=== PATIENT | female | born 1980 | race Caucasian/White ===

== ENCOUNTER 2020-10-30 20:24 | Emergency (ER) | payer OTHER ==
[~2020-10-30] VITALS: Ht 167.6 cm; Wt 83.9 kg
[2020-10-30] MEDS ORDERED: CYCL10 (21:48)
[2020-10-30] MEDS ORDERED: BUPROPION HCL200 M1 PO (21:51)
[2020-10-30] MEDS ORDERED: CLON.1 PO (21:51)
[2020-10-30] MEDS ORDERED: HYDHCL25 PO (21:52)
[2020-10-30 23:24] LABS: BASOPHILS ABSOLUTE AUTO 0.11 K/mm3 (0.00-0.23); BASOPHILS PERCENT AUTO 1 % (0-2); EOSINOPHILS ABSOLUTE AUTO 0.69 K/mm3 (0.00-0.68); EOSINOPHILS PERCENT AUTO 7 % (0-6); Hemoglobin 12.9 g/dL (11.5-16.0); IMMATURE GRAN ABSOLUTE AUTO 0.02 K/mm3 (0.00-0.10); IMMATURE GRAN PERCENT AUTO 0 % (0-1); LYMPHOCYTES ABSOLUTE AUTO 3.14 K/mm3 (0.84-5.20); LYMPHOCYTES PERCENT AUTO 30 % (21-46); MONOCYTES ABSOLUTE AUTO 0.79 K/mm3 (0.16-1.47); MONOCYTES PERCENT AUTO 8 % (4-13); Mean Corpuscular HGB 31.2 pg (26.0-34.0); Mean Corpuscular HGB Conc 33.9 g/dL (31.5-36.5); Mean Corpuscular Volume 92 fL (80-100); Mean Platelet Volume 10.4 fL (9.1-12.4); NEUTROPHILS ABSOLUTE AUTO 5.84 K/mm3 (1.96-9.15); NEUTROPHILS PERCENT AUTO 55 % (41-73); Platelet Count 238 K/mm3 (150-400); RDW Coefficient Variation 12.1 % (11.7-14.2); RDW Standard Deviation 41.2 fL (35.1-46.3); Red Blood Cell Count 4.13 M/mm3 (3.80-5.20); White Blood Cell Count 10.59 K/mm3 (4.00-11.30)
[2020-10-30 23:42] LABS: Alanine Aminotransfer (ALT/SGP 23 U/L (12-78); Albumin, Blood 3.7 g/dL (3.4-5.0); Alk Phos 49 U/L (50-136); Anion Gap 5 mmol/L (6-16); Aspartate Aminotrans (AST/SGOT 20 U/L (12-37); Bilirubin, Total 0.3 mg/dL (0.1-1.0); Blood Urea Nitrogen 13 mg/dL (8-24); Bun/Creatinine Ratio 19.6 (12.0-20.0); C-REACTIVE PROTEIN, EXT RANGE 0.347 mg/dL (0.000-0.300); CO2, Blood 26 mmol/L (21-32); Calcium, Blood 8.5 mg/dL (8.5-10.1); Chloride, Blood 108 mmol/L (98-108); Creatinine, Blood 0.66 mg/dL (0.40-1.00); Globulin, Blood 3.7 g/dL (2.2-4.0); Glomerular Filtration Rate >60 (60-); Glucose, Blood 93 mg/dL (70-99); Potassium, Blood 4.4 mmol/L (3.5-5.5); Sodium, Blood 139 mmol/L (136-145); Total Protein, Blood 7.4 g/dL (6.4-8.2)
== END 2020-10-31 01:40 | disposition home or self-care (01) ==
LOC: ER 20:24
PROVIDERS: Physician Assistant
DX: M79.601 Pain in right arm (principal); Z87.891 Personal history of nicotine dependence
CPT/HCPCS: 36415; 73201; 80053; 85025; 85651; 86140; 94640; 96374-59; 96375; 99284-25; A9270; J1170; J2405; J3010; Q9967

== ENCOUNTER → 2021-08-23 | Outpatient (CLI) | payer OTHER ==
[~2021-08-23] MED LIST: BUPROPION HCL200 M1 PO; CLON.1 PO; CYCL10; HYDHCL25 PO
== END | disposition home or self-care (01) ==
LOC: LAB SHORT 10:02 → LAB 10:02
DX: N39.0 Urinary tract infection, site not specified (principal)
CPT/HCPCS: 87077; 87086; 87186

== ENCOUNTER → 2021-11-07 | Outpatient (CLI) | payer OTHER ==
[2021-11-10 09:09] LABS: HPV 16 Negative (Negative); HPV 18 Negative (Negative); HPV OTHER HR TYPES Negative (Negative)
== END | disposition home or self-care (01) ==
LOC: LAB 09:20 → LAB SHORT 09:20
PROVIDERS: Family Medicine
DX: Z01.419 Encounter for gynecological examination (general) (routine) without abnormal findings (principal)
CPT/HCPCS: 87624; G0123

== ENCOUNTER 2022-01-14 18:35 | Emergency (ER) | payer OTHER ==
[~2022-01-14] VITALS: Ht 167.6 cm; Wt 78.0 kg
== END 2022-01-15 00:22 | disposition home or self-care (01) ==
LOC: ER 18:35
DX: T23.222A Burn of second degree of single left finger (nail) except thumb, initial encounter (principal); X15.2XXA Contact with hotplate, initial encounter; Z88.0 Allergy status to penicillin
CPT/HCPCS: A9270; J1885

== ENCOUNTER 2022-09-15 13:41 | Day surgery (SDC) | payer OTHER ==
[~2022-09-15] VITALS: Ht 167.6 cm; Wt 78.7 kg
[~2022-09-15 13:41] MED LIST changes: +CYCL10 PO
[2022-09-15] MEDS ORDERED: CYCL10 (14:01)
[2022-09-15] MEDS ORDERED: ALBU90OI (14:01)
[2022-09-15] MEDS ORDERED: Pulmicort Fle180 MCG (14:02)
[2022-09-15 16:59] VITALS: BP 128/90
== END 2022-09-15 16:51 | disposition home or self-care (01) ==
LOC: ORSCSDS 13:41
PROVIDERS: Internal Medicine Gastroenterology
PROC: 0DBC8ZX Excision of Ileocecal Valve, Via Natural or Artificial Opening Endoscopic, Diagnostic (ICD-10-PCS; principal; 2022-09-15 15:00)
DX: K59.00 Constipation, unspecified (principal); K64.8 Other hemorrhoids; F20.9 Schizophrenia, unspecified; F41.9 Anxiety disorder, unspecified; J45.909 Unspecified asthma, uncomplicated; K62.89 Other specified diseases of anus and rectum; F43.10 Post-traumatic stress disorder, unspecified; F17.290 Nicotine dependence, other tobacco product, uncomplicated; Z79.899 Other long term (current) drug therapy
CPT/HCPCS: A9270; J0461; J2001; J2250; J2405; J2704; J7120; Q9968

== ENCOUNTER 2025-02-26 17:51 | Emergency (ER) | payer OTHER ==
[~2025-02-26] VITALS: Ht 167.6 cm; Wt 81.2 kg
[~2025-02-26 17:51] MED LIST changes: +ALBU90OI; +Pulmicort Fle180 MCG
[2025-02-26] MEDS ORDERED: FentaNYL Citrate 50 MCG/ML 2 ML Injection IV ONE (18:05)
[2025-02-26] MEDS ORDERED: Ketorolac Tromethamine 15mg Vial IV ONE (18:05)
[2025-02-26] MEDS ORDERED: PROPOFOL IV SCH ×2 (18:50→18:55)
[2025-02-26] MEDS ORDERED: Propofol 10mg/ml 20 ml Vial (Procedural) IV ONE (19:00)
[2025-02-26] MEDS ORDERED: ONDA4ODT MM (19:58)
[2025-02-26] MEDS ORDERED: RX Prepack 6 Tabs Oxycodone 5mg UD ONE (20:00)
[2025-02-26] MEDS ORDERED: OxyCODONE 10/Acetamin 325 TABLET PO ONE (20:00)
== END 2025-02-26 21:01 | disposition home or self-care (01) ==
LOC: ER 17:51
DX: S43.015A Anterior dislocation of left humerus, initial encounter (principal); M54.6 Pain in thoracic spine; W03.XXXA Other fall on same level due to collision with another person, initial encounter; Z88.1 Allergy status to other antibiotic agents; Z79.899 Other long term (current) drug therapy
CPT/HCPCS: 23650; 73020; 73030; 73080; 96374; 96375; 99152; 99283-25; A9270; J1885; J2704; J3010

== ENCOUNTER → 2025-03-03 | Outpatient (CLI) | payer OTHER ==
[~2025-03-03] MED LIST changes: +ONDA4ODT MM
[2025-03-03 19:38] LABS: BASOPHILS ABSOLUTE AUTO 0.06 K/mm3 (0.00-0.23); BASOPHILS PERCENT AUTO 1 % (0-2); EOSINOPHILS ABSOLUTE AUTO 0.16 K/mm3 (0.00-0.68); EOSINOPHILS PERCENT AUTO 2 % (0-6); Hematocrit 40.3 % (33.0-51.0); Hemoglobin 13.6 g/dL (11.5-16.0); IMMATURE GRAN ABSOLUTE AUTO 0.02 K/mm3 (0.00-0.10); IMMATURE GRAN PERCENT AUTO 0 % (0-1); LYMPHOCYTES ABSOLUTE AUTO 2.85 K/mm3 (0.84-5.20); LYMPHOCYTES PERCENT AUTO 33 % (21-46); MONOCYTES ABSOLUTE AUTO 0.63 K/mm3 (0.16-1.47); MONOCYTES PERCENT AUTO 7 % (4-13); Mean Corpuscular HGB Conc 33.7 g/dL (31.5-36.5); Mean Corpuscular Volume 92 fL (80-100); NEUTROPHILS ABSOLUTE AUTO 4.87 K/mm3 (1.96-9.15); NEUTROPHILS PERCENT AUTO 57 % (41-73); NRBC ABSOLUTE 0.00 K/mm3 (0.00-0.02); NRBC Auto 0.0 /100 WBC (0.0-0.2); Platelet Count 229 K/mm3 (150-400); RDW Coefficient Variation 11.9 % (11.7-14.2); RDW Standard Deviation 40.6 fL (35.1-46.3)
[2025-03-03 21:12] LABS: Alanine Aminotransfer (ALT/SGP 30 U/L (12-78); Albumin, Blood 4.1 g/dL (3.4-5.0); Albumin/Globulin Ratio 1.1 (0.8-1.8); Anion Gap 8 mmol/L (3-11); Aspartate Aminotrans (AST/SGOT 17 U/L (12-37); Bilirubin, Total 0.5 mg/dL (0.1-1.0); Blood Urea Nitrogen 12 mg/dL (8-24); CHOL/HDL RATIO 2.8; CO2, Blood 25 mmol/L (21-32); Calcium, Blood 8.9 mg/dL (8.5-10.1); Chloride, Blood 106 mmol/L (98-108); Cholesterol 159 mg/dL (50-200); Creatinine, Blood 0.72 mg/dL (0.40-1.00); Globulin, Blood 3.6 g/dL (2.2-4.0); Glucose, Blood 101 mg/dL (70-99); HDL Cholesterol 57 mg/dL (>39); LDL/HDL RATIO 1.6; Low Density Lipoprotein Chol 90 mg/dL (0-110); Potassium, Blood 3.9 mmol/L (3.5-5.5); Sodium, Blood 135 mmol/L (136-145); Thyroid Stimulating Hormone 3.650 uIU/mL (0.360-4.800); Total Protein, Blood 7.7 g/dL (6.4-8.2); Triglycerides 62 mg/dL (30-160); Very Low Density Lipoprot Chol 12 mg/dL (6-32)
== END ==
LOC: LAB SHORT 17:37 → LAB 17:37
PROVIDERS: Nurse Practitioner Family
DX: E88.2 Lipomatosis, not elsewhere classified (principal)
CPT/HCPCS: 80053; 80061; 82306; 84443; 85025